=== PATIENT | female | born 1965 | race Caucasian/White ===

== ENCOUNTER 2016-12-16 20:25 | Emergency (ER) | payer OTHER ==
[~2016-12-16] VITALS: Ht 165.1 cm; Wt 59.8 kg
[~2016-12-16 20:25] MED LIST: ADVAIR 250/501 DISK IH; ADVAIR HFA120 INHALA IH; ALBUTEROL17 GM IH; AUGMENTIN875 MG PO; AVENTYL,PAMELOR10 M1 PO; Advair HFA 115/21 IH; CIPRO500 MG PO; COUMADIN,JANTOVE1 MG PO; COUMADIN1 MG PO; DICLOFENAC SODI75 MG PO; DITROPAN XL10 MG PO; DITROPAN XL15 MG PO; Ditropan PO; ENDOCET 5-3251 EACH PO; FEOSOL325 MG PO; FLEXERIL10 MG PO; FOLIC ACID1 MG PO; GLUCOPHAGE1000 MG PO; IMITREX100 MG PO; IRON325 M1 PO; LIDODERM 5% P1 PATCH TD; LORTAB 5-325 M1 EACH PO; LORTAB 7.5-5001 EACH PO; LYRICA100 MG PO; METFORMIN HCL500 MG PO; METHOTREXATE2.5 MG PO; NAPROSYN500 MG PO; NEURONTIN600 MG PO; NORCO 10/3251 TABLET PO; NORCO 5/3251 TABLET; NORTRIPTYLINE H10 MG PO; OXYCODONE HCL5 MG PO; PAXIL40 MG PO; PLAQUENIL200 MG PO; PRAVACHOL10 MG PO; PRAVACHOL20 MG PO; PREDNISONE10 MG PO; PREDNISONE50 MG PO; PROVENTIL HFA6.7 GM IH; Proventil,Ventolin H IH; REGLAN10 MG PO; ROBAXIN500 MG; SENOKOT S,PE1 TABLET PO; SIMVASTATIN10 MG PO; TREXALL10 MG PO; Tylenol Regular Stre PO; VOLTAREN75 MG PO; ZANAFLEX4 MG PO; Zocor PO
[2016-12-16 22:15] VITALS: BP 119/66
== END 2016-12-16 22:16 | disposition home or self-care (01) ==
LOC: EME 20:25
DX: M77.9 Enthesopathy, unspecified (principal); F17.200 Nicotine dependence, unspecified, uncomplicated
CPT/HCPCS: 99281; 99284

== ENCOUNTER 2017-02-04 13:26 | Emergency (ER) | payer OTHER ==
[~2017-02-04] VITALS: Ht 165.1 cm; Wt 58.8 kg
[2017-02-04] MEDS ORDERED: INDOCIN50 MG PO (15:05)
[2017-02-04 15:24] VITALS: BP 124/81
== END 2017-02-04 15:24 | disposition home or self-care (01) ==
LOC: EME 13:26
DX: S63.502A Unspecified sprain of left wrist, initial encounter (principal); X50.9XXA Other and unspecified overexertion or strenuous movements or postures, initial encounter; Y93.89 Activity, other specified
CPT/HCPCS: 99281; 99283

== ENCOUNTER 2017-03-08 16:02 | Emergency (ER) | payer OTHER ==
[~2017-03-08] VITALS: Ht 165.1 cm; Wt 59.1 kg
[~2017-03-08 16:02] MED LIST changes: +INDOCIN50 MG PO
[2017-03-08 16:13] VITALS: BP 103/70
[2017-03-08] MEDS ORDERED: FIORICET,ESG1 TABLET PO (18:37)
== END 2017-03-08 18:53 | disposition home or self-care (01) ==
LOC: EME 16:02 → RME 16:02
DX: G43.909 Migraine, unspecified, not intractable, without status migrainosus (principal); J45.909 Unspecified asthma, uncomplicated; E11.9 Type 2 diabetes mellitus without complications; F17.200 Nicotine dependence, unspecified, uncomplicated
CPT/HCPCS: 99281; 99283; J1885

== ENCOUNTER 2017-06-30 20:16 | Emergency (ER) | payer OTHER ==
[~2017-06-30] VITALS: Ht 165.1 cm; Wt 59.6 kg
[~2017-06-30 20:16] MED LIST changes: +FIORICET,ESG1 TABLET PO
[2017-06-30] MEDS ORDERED: NORCO 5/3251 TABLET PO (22:03)
[2017-06-30] MEDS ORDERED: FLEXERIL10 MG PO (22:03)
[2017-06-30] MEDS ORDERED: MEDROL DOSEPAK4 MG PO (22:03)
[2017-06-30 22:21] VITALS: BP 137/90
== END 2017-06-30 22:37 | disposition home or self-care (01) ==
LOC: EME 20:16
DX: M25.512 Pain in left shoulder (principal); M32.9 Systemic lupus erythematosus, unspecified; M06.9 Rheumatoid arthritis, unspecified; M79.7 Fibromyalgia; E11.9 Type 2 diabetes mellitus without complications; J45.909 Unspecified asthma, uncomplicated; G43.909 Migraine, unspecified, not intractable, without status migrainosus; Z79.84 Long term (current) use of oral hypoglycemic drugs; F17.200 Nicotine dependence, unspecified, uncomplicated
CPT/HCPCS: 99281; 99283; J7512